=== PATIENT | female | born 1945 | race Caucasian/White ===

== ENCOUNTER 2019-05-11 00:42 | Emergency (ER) | payer MEDICARE, BC ==
[2019-05-11] MEDS ORDERED: ZESTRIL20 M1 PO (00:52)
[2019-05-11] MEDS ORDERED: XANAX0.5 M1 PO (00:53)
[2019-05-11] MEDS ORDERED: ZOCOR40 M1 PO (00:53)
[2019-05-11] MEDS ORDERED: ZOFRAN ODT4 MG PO (01:43)
[2019-05-11] MEDS ORDERED: ULTRAM50 M1 PO (01:43)
[2019-05-11] MEDS ORDERED: VALTREX1 GM PO (01:43)
[2019-05-11] MEDS ORDERED: MECLIZINE PO (01:43)
[2019-05-11 02:12] VITALS: BP 158/82
== END 2019-05-11 02:12 | disposition home or self-care (01) ==
LOC: ED 00:42
DX: B02.9 Zoster without complications (principal); I10 Essential (primary) hypertension; E78.5 Hyperlipidemia, unspecified; Z90.49 Acquired absence of other specified parts of digestive tract; Z98.51 Tubal ligation status; Z88.2 Allergy status to sulfonamides

== ENCOUNTER 2019-08-14 09:30 | Outpatient (RCR) | payer MEDICARE, BC ==
[~2019-08-14 09:30] MED LIST: MECLIZINE PO; ULTRAM50 M1 PO; VALTREX1 GM PO; XANAX0.5 M1 PO; ZESTRIL20 M1 PO; ZOCOR40 M1 PO; ZOFRAN ODT4 MG PO
== END 2019-08-14 10:00 | disposition home or self-care (01) ==
LOC: PT
DX: Z98.890 Other specified postprocedural states (principal)

== ENCOUNTER → 2019-11-28 | Outpatient (CLI) | payer MEDICARE, BC | LOC: RAD 08:56 | DX: N13.30 Unspecified hydronephrosis (principal) ==

== ENCOUNTER → 2019-12-05 | Outpatient (CLI) | payer MEDICARE, BC | LOC: RAD 09:48 | DX: R31.29 Other microscopic hematuria (principal); R93.421 Abnormal radiologic findings on diagnostic imaging of right kidney | CPT/HCPCS: Q9967 ==

== ENCOUNTER → 2020-11-28 | Outpatient (CLI) | payer MEDICARE, BC | LOC: RAD 09:25 → LAB 09:25 → RAD 10:00 | PROVIDERS: Family Medicine | DX: Z00.00 Encounter for general adult medical examination without abnormal findings (principal); I10 Essential (primary) hypertension; E78.2 Mixed hyperlipidemia; R73.03 Prediabetes | CPT/HCPCS: Q9967 ==

== ENCOUNTER → 2024-03-21 | Outpatient (CLI) | payer MEDICARE, BC ==
[2024-03-21 08:53] LABS: BASO # 0.02 K/mm3 (0.02-0.10); EOS # 0.12 K/mm3 (0.04-0.40); EOS % 2.4 % (1.0-5.0); HEMATOCRIT 43.2 % (37.0-47.0); LYMPH# 1.71 K/mm3 (1.50-4.00); MEAN CELL VOLUME 101 fl (78-100); MEAN CORPUSCULAR HEMOGLOBIN 33 pg (27-31); MEAN CORPUSCULAR HGB CONC 32 g/dL (33-37); MEAN PLATELET VOLUME 10.6 fl (7.4-10.4); MONO # 0.44 K/mm3 (0.20-0.80); NEU # 2.66 K/mm3 (1.40-6.50); PLATELET COUNT 201 K/mm3 (130-400); RED CELL DISTRIBUTION WIDTH 12.5 % (11.5-14.5)
[2024-03-21 09:05] LABS: ALBUMIN 4.2 g/dL (3.4-4.8)
[2024-03-21 09:06] LABS: CALCIUM 9.5 mg/dL (8.3-10.5)
[2024-03-21 09:08] LABS: TOTAL PROTEIN 7.1 g/dL (6.2-8.1)
[2024-03-21 09:09] LABS: TOTAL BILIRUBIN 0.6 mg/dL (0.2-1.2)
== END ==
LOC: LAB 08:34
PROVIDERS: Family Medicine
DX: I10 Essential (primary) hypertension (principal); E78.5 Hyperlipidemia, unspecified